=== PATIENT | male | born 1955 | race Caucasian/White ===

== ENCOUNTER → 2021-12-24 16:27 | Outpatient (BNVA) | payer MEDICARE, SELFPAY | PROVIDERS: PCP Nurse Practitioner Family; Visit Provider Internal Medicine | DX: B18.2 Chronic viral hepatitis C (principal); Z11.59 Encounter for screening for other viral diseases; F19.21 Other psychoactive substance dependence, in remission | CPT/HCPCS: 82105; 86705; 86706; 87340 ==

== ENCOUNTER → 2022-01-13 12:53 | Outpatient (BNVA) | payer MEDICARE, SELFPAY | PROVIDERS: PCP Nurse Practitioner Family; Visit Provider Internal Medicine | DX: B18.2 Chronic viral hepatitis C (principal) | CPT/HCPCS: 87902 ==

== ENCOUNTER 2024-12-10 06:14 | Emergency (ER) | payer MEDICARE, SELFPAY ==
[2024-12-10 06:16] VITALS: BP 135/98; PULSE 110; RESP 18; TEMP 36.4; O2SAT 91; BMI 26.6
--- NOTE | 2024-12-10 06:16 | XRR_ITS ---
PROCEDURE INFORMATION: Exam: XR Chest Exam date and time: 12/10/2024 6:26 AM Age: 69 years old Clinical indication: Shortness of breath; C/O SOB due to allergic reaction. History of copd. ; Additional info: Dyspnea/cough TECHNIQUE: Imaging protocol: Radiologic exam of the chest. Views: 1 view. COMPARISON: No relevant prior studies available. FINDINGS: Lungs: Mild left basilar atelectasis versus scar. Pleural spaces: Unremarkable. No pleural effusion. No pneumothorax. Heart/Mediastinum: Unremarkable. No cardiomegaly. Bones/joints: Unremarkable. XR/XR chest 1V portable [id number] IMPRESSION: Mild left basilar atelectasis versus scar.
--- NOTE | 2024-12-10 06:21 | ECG_ITS ---
Creditable Test Date: 2024-12-10 Pat Name: Mario Lawrence Department: Room: Gender: Male Line Inspector: : 1955 Requested By: Bruno Birmingham Order Number: [id number] Be MD: Brenda Alegre M.D. Measurements Intervals [place] Rate: 101 P: 67 ND: 198 QRS: -76 QRSD: 126 T: 85 QT: 340 QTc: 443 Interpretive Statements SINUS TACHYCARDIA LEFT ANTERIOR FASCICULAR BLOCK [QRS AXIS <= -45, QR IN I, RS IN II] POSSIBLE ANTERIOR MYOCARDIAL INFARCTION , OF INDETERMINATE AGE MODERATE T-WAVE ABNORMALITY, CONSIDER LATERAL ISCHEMIA Compared to ECG 10/17/2016 12:33:19 Left anterior fascicular block now present Myocardial infarct finding now present T-wave abnormality now present Possible ischemia now present Sinus rhythm no longer present Left ventricular hypertrophy no longer present Electronically Signed On 12-11-2024 12:38:35 M[employer]ING PAN [employer] by Brenda Alegre M.D. [email or web address]
--- NOTE | 2024-12-10 06:54 | W.ED.ALLEREA ---
HPI - Allergic Reaction General: Chief complaint: Allergic Reaction Stated complaint: sob Time Seen by Provider: 12/10/24 06:16 History of Present Illness: HPI narrative: 69-year-old male presents emergency room with systemic urticaria he woke up with it this morning. Patient has a history of COPD he is not using any medications for it. He has not taken anything for this he has a lot of pruritus on his extremities. He has not had any wheezing or significant difficulty breathing to this point. He has not tried any new medicines in the last 24 to 48 hours he did get a testosterone shot but he has had this as well. Associated symptoms: Deny abdominal pain Related Data Home Medications ?Medication ?Instructions ?Recorded ?Confirmed tamsulosin 0.4 mg capsule 0.4 mg PO BID 12/24/21 12/10/24 bupropion HCl 300 mg 24 hr tablet, 300 mg PO DAILY 12/10/24 12/10/24 extended release levothyroxine 137 mcg tablet 137 mcg PO DAILY 12/10/24 12/10/24 testosterone cypionate 200 mg/mL 1 mg IM Q28D 12/10/24 12/10/24 intramuscular oil valsartan 160 1 tab PO DAILY 12/10/24 12/10/24 mg-hydrochlorothiazide 12.5 mg tablet Previous Rx's ?Medication ?Instructions ?Recorded albuterol sulfate 90 mcg/actuation 2 inh inhalation Q4H PRN shortness 12/10/24 aerosol inhaler of breath or wheezing #18 grams cetirizine 10 mg capsule 10 mg PO BID #14 caps 12/10/24 prednisone 20 mg tablet 20 mg PO TID #15 tabs 12/10/24 Allergies Allergy/AdvReac Type Severity Reaction Status Date / Time Penicillins Allergy Severe hives Verified 12/24/21 14:23 Review of Systems Const: Denies: fever(s) or chills Card: Denies: chest pain Resp: Denies: dyspnea GI: Denies: abdominal pain : Denies: dysuria, urinary frequency or urinary urgency Musc: Denies: neck pain or back pain Skin/Breast: Reports: pruritus, erythema and other (Urticaria) PFS ED PFSH: Social History Smoking and tobacco/nicotine status: former use of tobacco/nicotine Physical Exam Const: COMMON NORMALS: no acute distress GENERAL APPEARANCE: cooperative and comfortable ORIENTATION/CONSCIOUSNESS: Yes awake, Yes oriented to person, Yes oriented to place and Yes oriented to time HENMT: COMMON NORMALS: normocephalic, atraumatic and hearing grossly normal bilaterally HEAD & SCALP: normocephalic and atraumatic Resp: COMMON NORMALS: normal respiratory effort, No retractions, No use of accessory muscles and clear to auscultation bilaterally AUSCULTATION: clear to auscultation bilaterally Cardio: COMMON NORMALS: regular rate, regular rhythm and No murmurs present (Cardio) RATE: regular rate RHYTHM: regular rhythm GI: COMMON NORMALS: Soft to palpation and No hepatosplenomegaly present AUSCULTATION: Yes normoactive bowel sounds PALPATION: Yes Soft to palpation, No Tenderness to palpation present (GI), No Guarding due to palpation present (GI) and Yes No hepatosplenomegaly present Extremity: COMMON NORMALS: normal to inspection, capillary refill normal, no clubbing, cyanosis or edema, no calf tenderness and no pedal edema Neuro: SENSORIUM/ORIENTATION: Yes oriented to person, Yes oriented to place and Yes oriented to time Skin: COMMON NORMALS: no rashes or lesions noted GENERAL SKIN EXAM: no rashes or lesions noted Course Vital Signs: Vital signs: Vital Signs Temperature 97.5 F L 12/10/24 06:16 Pulse Rate 102 H 12/10/24 08:37 Respiratory Rate 18 12/10/24 07:12 Blood Pressure 110/72 12/10/24 08:37 Pulse Oximetry 93 12/10/24 08:37 Oxygen Delivery Me thod Room Air 12/10/24 07:12 MDM - Allergic Reaction Medical Decision Making Improved with steroids and antihistamines in the emergency room. He is not having difficulty breathing. Urticaria has mostly resolved. Will start patient on a steroid taper and also have him use to cetirizine 10 mg twice a day both for 1 week. At the time of discharge patient has that we also prescribed a albuterol inhaler she has a history of COPD previously prescribed 1 is empty this was added to his discharge medicines. Medical Records I reviewed the patient's medical records. Lab Data I reviewed the patient's lab results. Radiology Impressions Chest X-Ray 12/10/24 06:16 IMPRESSION: Mild left basilar atelectasis versus scar. Laboratory Results Influenza A (PCR) Negative (Negative) 12/10/24 06:29 Influenza Type B (PCR) Negative (Negative) 12/10/24 06:29 RSV (PCR) Negative (Negative) 12/10/24 06:29 SARS-CoV-2 (PCR) Negative (Negative) 12/10/24 06:29 All radiology interpretation(s) finalized by discharge Discharge Plan Discharge Patient Disposition: Home Clinical Impression: Urticaria Condition: Stable Prescriptions: New prednisone 20 mg tablet 20 mg PO TID Qty: 15 0RF Rx Instructions: 1 p.o. 3 times daily x3 days, 1 p.o. twice daily x2 days, 1 p.o. daily x2 days cetirizine 10 mg capsule 10 mg PO BID Qty: 14 0RF albuterol sulfate 90 mcg/actuation HFA aerosol inhaler 2 inh INHALATION Q4H PRN (Reason: shortness of breath or wheezing) Qty: 18 0RF No Action tamsulosin 0.4 mg capsule 0.4 mg PO BID testosterone cypionate 200 mg/mL oil 1 mg IM Q28D bupropion HCl 300 mg tablet extended release 24 hr 300 mg PO DAILY levothyroxine 137 mcg tablet 137 mcg PO DAILY valsartan-hydrochlorothiazide 160-12.5 mg tablet 1 tab PO DAILY Discharge Orders: Discharge ED (Routine); Ordered 12/10/24 Ordered By: Bruno Forrest Referrals: Gita Castro FNP [Primary Care Provider] - Discharge Diet: Usual diet Discharge Activity: Resume usual activity Patient Instructions: Opioid Safety, Pain Management Activity Restrictions/Additional Instructions: Thank you for choosing [facility] for your healthcare needs today. It is very important that you follow up as instructed or that you return to the Emergency Department should you have concerns or if your condition changes or worsens in any way. You are seen after an episode of urticaria (hives). Patients do often have episodes of this week are not always able to identify triggering medication event or cause. Your urticaria did improve with treatment given in the emergency room. Recommend a steroid taper and antihistamines over the next week. If it recurs you to return to the emergency room or follow-up your primary care doctor. Print Language: Peruvian Coding Level of Care Code ED Director Of Corporate Sponsorships for Alexandra Nino
[2024-12-10] MEDS: methylPREDNISolone sod succ 125 mg/2 mL INJ IVP (07:03)
[2024-12-10] MEDS: diphenhydrAMINE 50 mg/mL SDV 1mL IVP (07:03)
[2024-12-10 07:12] VITALS: PULSE 90; RESP 18; O2SAT 95
[2024-12-10] MEDS: ipratropium-albuterol 3 mL Neb INHALATION (07:14)
[2024-12-10 07:15] VITALS: BP 136/93; O2SAT 98
[2024-12-10 07:24] LABS: Influenza A NEGATIVE (Negative); Influenza B NEGATIVE (Negative); Respiratory Syncytial Virus Ce NEGATIVE (Negative); SARS-CoV-2 PCR NEGATIVE (Negative)
[2024-12-10 07:35] VITALS: BP 126/80; O2SAT 96
[2024-12-10 08:05] VITALS: BP 110/72; O2SAT 96
[2024-12-10 08:37] VITALS: BP 110/72; PULSE 102; O2SAT 93
== END 2024-12-10 08:38 | disposition home or self-care (01) ==
PROVIDERS: Emergency Provider Family Medicine; PCP Nurse Practitioner Family
DX: L50.9 Urticaria, unspecified (principal); Z11.52 Encounter for screening for COVID-19; Z87.891 Personal history of nicotine dependence
CPT/HCPCS: 36415; 71045; 87637; 93005; 94640; 96374; 96375; 99284; J1200; J2919